=== PATIENT | female | born 1975 | race Caucasian/White ===

== ENCOUNTER → 2016-04-26 | Outpatient (REF) | payer BC ==
[2016-04-26 17:24] LABS: IMMUNOGLOBULIN G 1230 MG/DL (681-1648); IMMUNOGLOBULIN M 146 MG/DL (40-230); TOTAL PROTEIN 7.6 GM/DL (6.4-8.2)
[2016-04-28 12:00] LABS: ALBUMIN 3.88 GM/DL (3.29-5.55); ALBUMIN % 51.1 % (55.8-66.1); GAMMA GLOBULIN % 16.4 % (11.1-18.8)
== END ==
LOC: M LAB REF 16:08
PROVIDERS: ATTEND Nurse Practitioner Family
DX: R21 Rash and other nonspecific skin eruption (principal); D47.2 Monoclonal gammopathy

== ENCOUNTER → 2017-02-10 | Outpatient (REF) | payer BC | LOC: M SFHCWAGY 11:20 | DX: Z12.4 Encounter for screening for malignant neoplasm of cervix (principal) | CPT/HCPCS: G0123 ==

== ENCOUNTER → 2017-06-02 | Outpatient (REF) | payer BC ==
[2017-06-02 13:23] LABS: IMMUNOGLOBULIN G 1130 MG/DL (681-1648); IMMUNOGLOBULIN M 127 MG/DL (40-230); TOTAL PROTEIN 7.4 GM/DL (6.4-8.2)
[2017-06-07 09:45] LABS: ALPHA-1-GLOBULIN % 5.7 % (2.9-4.9)
[2017-06-07 09:46] LABS: ALBUMIN 3.77 GM/DL (3.29-5.55); ALPHA-1-GLOBULINS 0.42 GM/DL (0.17-0.41); ALPHA-2-GLOBULINS 1.04 GM/DL (0.42-0.99); ALPHA-2-GLOBULINS % 14.1 % (7.1-11.8); BETA-1-GLOBULINS 0.61 GM/DL (0.28-0.60); BETA-1-GLOBULINS % 8.3 % (4.7-7.2); BETA-2-GLOBULINS 0.38 GM/DL (0.19-0.55); BETA-2-GLOBULINS % 5.1 % (3.2-6.5); GAMMA GLOBULIN % 15.8 % (11.1-18.8); GAMMA GLOBULINS 1.17 GM/DL (0.65-1.58)
[2017-06-08 14:19] LABS: IMMUNOTYPING SERUM IGG ABNORMAL (NORMAL); IMMUNOTYPING SERUM LAMBDA ABNORMAL (NORMAL)
== END ==
LOC: M LAB REF 12:06
DX: D47.2 Monoclonal gammopathy (principal)
CPT/HCPCS: 84165

== ENCOUNTER → 2017-12-11 | Outpatient (REF) | payer BC ==
[2017-12-12 13:51] LABS: ALBUMIN % 49.5 % (55.8-66.1); ALPHA-1-GLOBULIN % 5.8 % (2.9-4.9); ALPHA-2-GLOBULINS % 13.8 % (7.1-11.8)
[2017-12-12 13:52] LABS: ALBUMIN 3.47 GM/DL (3.29-5.55); ALPHA-1-GLOBULINS 0.41 GM/DL (0.17-0.41); ALPHA-2-GLOBULINS 0.97 GM/DL (0.42-0.99); BETA-1-GLOBULINS 0.61 GM/DL (0.28-0.60); BETA-1-GLOBULINS % 8.7 % (4.7-7.2); BETA-2-GLOBULINS 0.36 GM/DL (0.19-0.55); BETA-2-GLOBULINS % 5.1 % (3.2-6.5); GAMMA GLOBULIN % 17.1 % (11.1-18.8)
[2017-12-12 13:58] LABS: IMMUNOTYPING SERUM IGG ABNORMAL (NORMAL); IMMUNOTYPING SERUM LAMBDA ABNORMAL (NORMAL)
== END ==
LOC: M LAB REF 16:38
DX: D47.2 Monoclonal gammopathy (principal)
CPT/HCPCS: 84165

== ENCOUNTER → 2018-04-20 | Outpatient (CLI) | payer BC ==
--- NOTE | 2018-04-20 17:35 | REPMRS ---
Patient History The patient states she had a clinical breast exam in 05/01 Patient is nulliparous. Family history of pancreatic cancer at age 50 or over in maternal grandmother. Taking hormonal contraceptives for 26 years. 3D TOMOSYNTHESIS WAS PERFORMED. Digital Woman Screen Mammo: April 20, 2018 - Exam #: [id number] Bilateral CC and MLO view(s) were taken. Technologist: Gloria Ruiz, Technologist Prior study comparison: February 05, 2016, digital woman screen mammo performed at [facility]. FINDINGS: There are scattered fibroglandular densities. There has been no change in the appearance of the mammogram from the prior studies. There is a mild amount of residual fibroglandular tissue which is fairly symmetric. There is no interval development of dominant mass, architectural distortion, or clustered microcalcification suggestive of malignancy. Assessment: BI-RADS/ACR category 1 mammogram. Negative Mammogram. Recommendation Routine screening mammogram in 1 year (for women over age 40). This mammogram was interpreted with the aid of an FDA-approved computer-aided dectection system. Electronically Signed By: Dylan Vega MD 04/20/18 [id number]
== END ==
LOC: M WHC 15:03
PROVIDERS: ATTEND Nurse Practitioner Family
DX: Z12.31 Encounter for screening mammogram for malignant neoplasm of breast (principal); Z78.0 Asymptomatic menopausal state; Z80.0 Family history of malignant neoplasm of digestive organs; Z92.0 Personal history of contraception

== ENCOUNTER → 2018-04-20 | Outpatient (REF) | payer BC | LOC: M SFHCWAGY 15:29 | PROVIDERS: ATTEND Nurse Practitioner Family | DX: Z12.4 Encounter for screening for malignant neoplasm of cervix (principal); N76.0 Acute vaginitis ==

== ENCOUNTER → 2019-01-14 | Outpatient (REF) | payer BC ==
[2019-01-15 17:51] LABS: TOTAL PROTEIN 7.5 GM/DL (6.4-8.2)
[2019-01-17 11:58] LABS: ALBUMIN 4.19 GM/DL (3.29-5.55); ALBUMIN % 55.9 % (55.8-66.1); ALPHA-2-GLOBULINS 0.89 GM/DL (0.42-0.99); ALPHA-2-GLOBULINS % 11.9 % (7.1-11.8); BETA-1-GLOBULINS 0.55 GM/DL (0.28-0.60); BETA-1-GLOBULINS % 7.3 % (4.7-7.2); BETA-2-GLOBULINS 0.39 GM/DL (0.19-0.55); BETA-2-GLOBULINS % 5.2 % (3.2-6.5); GAMMA GLOBULIN % 15.7 % (11.1-18.8); GAMMA GLOBULINS 1.18 GM/DL (0.65-1.58)
[2019-01-17 12:31] LABS: IMMUNOTYPING SERUM IGG ABNORMAL (NORMAL); IMMUNOTYPING SERUM LAMBDA ABNORMAL (NORMAL)
== END ==
LOC: M LAB REF 17:07
PROVIDERS: ATTEND Internal Medicine
DX: D47.2 Monoclonal gammopathy (principal)

== ENCOUNTER → 2019-08-29 | Outpatient (CLI) | payer BC ==
--- NOTE | 2019-08-29 16:35 | REPMRS ---
Patient History The patient states she had a clinical breast exam in August 2019. Family history of pancreatic cancer at age 50 or over in maternal grandmother. Taking hormonal contraceptives for 26 years. 3D TOMOSYNTHESIS WAS PERFORMED. The [facility] lifetime risk for breast cancer is 15.3%. VOLPARA DENSITY A. Digital Woman Screen Mammo: August 29, 2019 - Exam #: [id number] Bilateral CC and MLO view(s) were taken. Technologist: Nara Larose, Technologist Prior study comparison: April 20, 2018, bilateral digital woman screen mammo performed at [facility]. 2018, bilateral digital mammo screening bilat, performed at [facility]. FINDINGS: There are scattered fibroglandular densities. There has been no change in the appearance of the mammogram from the prior studies. There is a mild amount of residual fibroglandular tissue which is fairly symmetric. There is no interval development of dominant mass, architectural distortion, or clustered microcalcification suggestive of malignancy. Assessment: BI-RADS/ACR category 1 mammogram. Negative Mammogram. Recommendation Routine screening mammogram in 1 year (for women over age 40). This mammogram was interpreted with the aid of an FDA-approved computer-aided dectection system. Electronically Signed By: Dylan Vega MD 08/29/19 [id number]
== END ==
LOC: M WHC 14:47
PROVIDERS: ATTEND Nurse Practitioner Family
DX: Z12.31 Encounter for screening mammogram for malignant neoplasm of breast (principal)

== ENCOUNTER → 2019-10-18 | Outpatient (REF) | payer BC ==
[2019-10-18 13:16] LABS: IMMUNOGLOBULIN G 1140 MG/DL (681-1648); TOTAL PROTEIN 7.3 GM/DL (6.4-8.2)
[2019-10-22 12:33] LABS: ALBUMIN 4.07 GM/DL (3.29-5.55); ALBUMIN % 5.8 % (55.8-66.1); ALPHA-1-GLOBULINS 0.29 GM/DL (0.17-0.41); ALPHA-2-GLOBULINS 0.85 GM/DL (0.42-0.99); ALPHA-2-GLOBULINS % 11.7 % (7.1-11.8); BETA-1-GLOBULINS 0.54 GM/DL (0.28-0.60); BETA-1-GLOBULINS % 7.4 % (4.7-7.2); BETA-2-GLOBULINS 0.39 GM/DL (0.19-0.55); BETA-2-GLOBULINS % 5.3 % (3.2-6.5); GAMMA GLOBULIN % 15.8 % (11.1-18.8); GAMMA GLOBULINS 1.15 GM/DL (0.65-1.58)
[2019-10-22 13:01] LABS: IMMUNOTYPING SERUM IGG ABNORMAL (NORMAL); IMMUNOTYPING SERUM LAMBDA ABNORMAL (NORMAL)
== END ==
LOC: M LAB REF 11:58
PROVIDERS: ATTEND Internal Medicine
DX: D47.2 Monoclonal gammopathy (principal)

== ENCOUNTER → 2019-11-05 | Outpatient (CLI) | payer SELFPAY | LOC: M LABSMTC 12:17 | PROVIDERS: ATTEND Pediatrics | DX: Z20.828 Contact with and (suspected) exposure to other viral communicable diseases (principal) ==

== ENCOUNTER → 2019-11-21 | Outpatient (CLI) | payer SELFPAY | LOC: M LABSMTC 12:17 | PROVIDERS: ATTEND Pediatrics | DX: Z20.828 Contact with and (suspected) exposure to other viral communicable diseases (principal) ==

== ENCOUNTER → 2019-11-29 | Outpatient (CLI) | payer SELFPAY | LOC: M LABSMTC 12:17 | PROVIDERS: ATTEND Pediatrics | DX: Z20.828 Contact with and (suspected) exposure to other viral communicable diseases (principal) ==

== ENCOUNTER → 2019-12-09 | Outpatient (CLI) | payer SELFPAY | LOC: M LABSMTC 12:52 | PROVIDERS: ATTEND Pediatrics | DX: Z20.828 Contact with and (suspected) exposure to other viral communicable diseases (principal) ==

== ENCOUNTER → 2019-12-18 | Outpatient (CLI) | payer SELFPAY | LOC: M LABSMTC 12:39 | PROVIDERS: ATTEND Pediatrics | DX: Z20.828 Contact with and (suspected) exposure to other viral communicable diseases (principal) ==

== ENCOUNTER → 2020-04-17 | Outpatient (REF) | payer BC ==
[2020-04-17 13:36] LABS: IMMUNOGLOBULIN G 1190 MG/DL (681-1648); TOTAL PROTEIN 7.7 GM/DL (6.4-8.2)
[2020-04-21 13:19] LABS: ALBUMIN 4.51 GM/DL (3.29-5.55); ALBUMIN % 58.6 % (55.8-66.1); ALPHA-1-GLOBULIN % 3.7 % (2.9-4.9); ALPHA-1-GLOBULINS 0.28 GM/DL (0.17-0.41); ALPHA-2-GLOBULINS 0.87 GM/DL (0.42-0.99); ALPHA-2-GLOBULINS % 11.3 % (7.1-11.8); BETA-1-GLOBULINS 0.51 GM/DL (0.28-0.60); BETA-1-GLOBULINS % 6.6 % (4.7-7.2); BETA-2-GLOBULINS 0.35 GM/DL (0.19-0.55); BETA-2-GLOBULINS % 4.5 % (3.2-6.5); GAMMA GLOBULIN % 15.3 % (11.1-18.8); GAMMA GLOBULINS 1.18 GM/DL (0.65-1.58)
[2020-04-21 14:07] LABS: IMMUNOTYPING SERUM IGG ABNORMAL (NORMAL); IMMUNOTYPING SERUM LAMBDA ABNORMAL (NORMAL)
== END ==
LOC: M LAB REF 12:21
PROVIDERS: ATTEND Internal Medicine
DX: D47.2 Monoclonal gammopathy (principal)

== ENCOUNTER → 2020-05-07 | Outpatient (CLI) | payer SELFPAY | LOC: M LABSMTC 12:12 | PROVIDERS: ATTEND Pediatrics | DX: Z20.822 Contact with and (suspected) exposure to COVID-19 (principal) ==

== ENCOUNTER 2020-06-05 01:35 | Emergency (ER) | payer BC ==
[~2020-06-05] VITALS: Ht 152.4 cm; Wt 77.6 kg
[2020-06-05] MEDS ORDERED: AMBI12.52 PO (01:45)
[2020-06-05] MEDS ORDERED: TRAM50TA2 PO (01:45)
[2020-06-05] MEDS ORDERED: ATEN25TA PO (01:45)
[2020-06-05] MEDS ORDERED: NORE0.353 PO (01:45)
[2020-06-05] MEDS ORDERED: HYDR-3490 PO (01:45)
[2020-06-05] MEDS ORDERED: PHEN-239 PO (01:45)
[2020-06-05] MEDS ORDERED: WELLTAB40 PO (01:50)
[2020-06-05] MEDS ORDERED: xyzal (01:58)
[2020-06-05] MEDS ORDERED: dexameTHASONE 20MG/5ML VIAL (J1100 PER 1MG) IV ONE (02:05)
[2020-06-05] MEDS: COMBIVENT RESPIMAT 100-20MCG INHALER 4GM INH SCH ×3 (02:26→03:17)
[2020-06-05 02:31] LABS: VENOUS BASE EXCESS -1.9 (-2.0-2.0); VENOUS HCO3 24.8 MEQ/L (23.0-27.0); VENOUS O2 SATURATION 94.8 % (60.0-80.0); VENOUS PARTIAL PRESSURE CO2 49.6 mmHg (38.0-50.0); VENOUS PARTIAL PRESSURE O2 77.4 mmHg (30.0-50.0); VENOUS PH 7.316 UNITS (7.330-7.430); VENOUS STANDARD HCO3 22.8 MEQ/L; VENOUS TOTAL CO2 26.3 MEQ/L (24.0-28.0)
[2020-06-05 02:35] LABS: BASO # 0.1 10^3/uL (0.0-0.2); BASO % 0.8 % (0.0-1.0); EOS # 0.6 10^3/uL (0.0-0.5); EOS % 4.1 % (0.0-3.0); HEMOGLOBIN 13.4 g/dl (12.0-15.5); LYMPH # 2.5 10^3/uL (1.5-5.0); LYMPH % 16.7 % (24.0-44.0); MEAN CORPUSCULAR HEMOGLOBIN 29.8 pg (27.0-33.0); MEAN CORPUSCULAR HGB CONC 32.7 g/dl (32.0-36.5); MEAN CORPUSCULAR VOLUME 91.3 fl (80.0-96.0); MONO # 1.3 10^3/uL (0.0-0.8); MONO % 8.8 % (2.0-8.0); NEUTROPHILS # 10.2 10^3/uL (1.5-8.5); NEUTROPHILS % 69.3 % (36.0-66.0); PLATELET COUNT, AUTOMATED 358 10^3/uL (150-450); RED BLOOD COUNT 4.49 10^6/uL (4.00-5.40); WHITE BLOOD COUNT 14.7 10^3/uL (4.0-10.0)
[2020-06-05 02:46] LABS: INR 0.95; PROTHROMBIN TIME 12.9 SECONDS (12.5-14.3)
[2020-06-05 02:48] LABS: D-DIMER QUANT 1173.97 ng/ml (<500)
[2020-06-05 03:01] LABS: HCG, SERUM QUALITATIVE NEGATIVE (NEGATIVE)
[2020-06-05 03:08] LABS: ALT/SGPT 21 U/L (12-78); BILIRUBIN,DIRECT 0.2 MG/DL (0.0-0.2); BILIRUBIN,TOTAL 0.5 MG/DL (0.2-1.0); BLOOD UREA NITROGEN 20 MG/DL (7-18); C REACTIVE PROTEIN QUANTITATIV 1.48 MG/DL (0.00-0.30); CARBON DIOXIDE LEVEL 26 MEQ/L (21-32); CHLORIDE LEVEL 108 MEQ/L (98-107); CPK CREATINE PHOSPHOKINASE 82 U/L (26-192); CREATININE FOR GFR 0.88 MG/DL (0.55-1.30); FERRITIN 23 NG/ML (8-252); GLOMERULAR FILTRATION RATE > 60.0 (>58); GLUCOSE, FASTING 146 MG/DL (70-100); LDH LACTATE DEHYDROGENASE 164 U/L (84-246); MB/CK RELATIVE INDEX 2.44 (< OR =4); SODIUM LEVEL 140 MEQ/L (136-145); TOTAL PROTEIN 7.7 GM/DL (6.4-8.2); TROPONIN I < 0.02 NG/ML (< 0.10)
--- NOTE | 2020-06-05 03:31 | REPVR ---
PROCEDURE INFORMATION: Exam: XR Chest Exam date and time: 06/05/2020 2:28 AM Age: 45 years old Clinical indication: Other: Dyspnea/cough TECHNIQUE: Imaging protocol: XR of the chest. Views: 1 view. COMPARISON: No relevant prior studies available. FINDINGS: Lungs: Unremarkable. No consolidation. Pleural spaces: Unremarkable. No pleural effusion. No pneumothorax. Heart/Mediastinum: Unremarkable. No cardiomegaly. Bones/joints: Unremarkable. IMPRESSION: No acute infiltrates. Electronically signed by: Aneudy Moreno On 06/05/2020 03:31:23 AM
[2020-06-05] MEDS ORDERED: ISOVUE-370 76% 100ML VIAL As Ordered ONE (04:57)
[2020-06-05] MEDS ORDERED: DEXA4TA PO (05:02)
[2020-06-05] MEDS ORDERED: VENTAER INH (05:03)
[2020-06-05 05:29] VITALS: BP 118/73
--- NOTE | 2020-06-05 18:11 | ECGEPIP ---
[facility] - ED Test Date: 2020-06-05 Pat Name: MONICA BARRAZA Department: Room: - Gender: Female [employer]: SR : 1975 Requested By: FERDINAND Naylor Order Number: [id number] Reading MD: Ferdinand Mathias Measurements Intervals [place] Rate: 105 P: 76 SC: 178 QRS: 69 QRSD: 92 T: 63 QT: 362 QTc: 478 Interpretive Statements Sinus tachycardia Comparison tracing not on file Electronically Signed on 06-05-2020 18:10:37 EDT by Ferdinand Mathias
== END 2020-06-05 05:33 | disposition home or self-care (01) ==
LOC: M ED 01:35
DX: J45.909 Unspecified asthma, uncomplicated (principal); K21.9 Gastro-esophageal reflux disease without esophagitis; Z87.891 Personal history of nicotine dependence; Z88.8 Allergy status to other drugs, medicaments and biological substances
CPT/HCPCS: 71045; 80048; 80076; 82550; 82553; 82728; 82803; 83605; 83615; 84443; 84484; 84703; 85025; 85379; 85610; 86140; 87040; 87798; 93005; 93041; 96374; 99284; J1100; Q9967

== ENCOUNTER → 2020-09-16 | Outpatient (REF) | payer BC ==
[~2020-09-16] MED LIST: AMBI12.52 PO; ATEN25TA PO; DEXA4TA PO; HYDR-3490 PO; NORE0.353 PO; PHEN-239 PO; TRAM50TA2 PO; VENTAER INH; WELLTAB40 PO; xyzal
== END ==
LOC: M SFHCWAGY 18:01
PROVIDERS: ATTEND Advanced Practice Midwife
DX: Z12.4 Encounter for screening for malignant neoplasm of cervix (principal)
CPT/HCPCS: 87624; G0123

== ENCOUNTER → 2020-09-16 | Outpatient (CLI) | payer BC ==
--- NOTE | 2020-09-16 16:23 | REPMRS ---
Patient History The patient states she had a clinical breast exam in September 2020. Family history of pancreatic cancer at age 50 or over in maternal grandmother. Taking hormonal contraceptives for 26 years. Patient states no breast complaints today. Patient has signed MRS History Sheet. Digital Woman Screen Mammo: September 16, 2020 - Exam #: [id number] Bilateral CC and MLO view(s) were taken. Technologist: Maci Rivers, Technologist Prior study comparison: August 29, 2019, bilateral digital woman screen mammo performed at [facility]. April 20, 2018, bilateral digital woman screen mammo performed at [facility]. FINDINGS: There are scattered fibroglandular densities. Screening. Digital screening (2D) mammography was performed bilaterally in the CC and MLO projections. Additionally, breast tomosynthesis (3D mammography) was performed bilaterally in the CC and MLO projections. Todays exam was compared to the prior exam/exams. By history, the patient has no complaints of a palpable breast abnormality or other significant breast complaints. The breasts are unchanged in size and shape. There are no jose enrique-soft tissue densities or spiculated masses. There is no internal architectural distortion. There are no suspicious jose enrique-calcific clusters. Skin thickening or nipple retraction is not present. IMPRESSION: BI-RADS Category 1-negative. There is no evidence of malignant alteration of the breasts. Followup examination recommended in one year. This mammogram was read with the assistance of UpTo,an FDA approved computer aided detection system for mammography. The Volpara volumetric breast density category is B, there are scattered areas of fibroglandular densities. Negative x-ray reports should not delay surgical consultation if a dominant or clinically suspicious mass is present. The lifetime Tyrer-Cuzick score is 15.1 % Not all breast cancers can be identified by mammography. Therefore, we recommend that you continue to perform regular breast self-examination and physical examination and then promptly contact your physician of any concerns or changes. Adenosis and dense breasts may obscure an underlying neoplasm. Assessment: BI-RADS/ACR category 1 mammogram. Negative Mammogram. Recommendation Routine screening mammogram of both breasts in 1 year. Electronically Signed By: Laith Jang DO 09/16/20 [id number]
== END ==
LOC: M WHC 15:27
PROVIDERS: ATTEND Advanced Practice Midwife
DX: Z12.31 Encounter for screening mammogram for malignant neoplasm of breast (principal); Z80.0 Family history of malignant neoplasm of digestive organs; Z79.3 Long term (current) use of hormonal contraceptives

== ENCOUNTER → 2021-01-27 | Outpatient (REF) | payer BC ==
[2021-01-27 18:46] LABS: IMMUNOGLOBULIN G 1290 MG/DL (681-1648); TOTAL PROTEIN 8.2 GM/DL (6.4-8.2)
[2021-01-29 11:22] LABS: ALBUMIN 4.67 GM/DL (3.29-5.55); ALBUMIN % 56.9 % (55.8-66.1); ALPHA-1-GLOBULIN % 3.8 % (2.9-4.9); ALPHA-1-GLOBULINS 0.31 GM/DL (0.17-0.41); ALPHA-2-GLOBULINS 0.98 GM/DL (0.42-0.99); ALPHA-2-GLOBULINS % 11.9 % (7.1-11.8); BETA-1-GLOBULINS 0.55 GM/DL (0.28-0.60); BETA-1-GLOBULINS % 6.7 % (4.7-7.2); BETA-2-GLOBULINS % 4.9 % (3.2-6.5); GAMMA GLOBULIN % 15.8 % (11.1-18.8)
[2021-01-29 11:35] LABS: IMMUNOTYPING SERUM IGG ABNORMAL (NORMAL); IMMUNOTYPING SERUM LAMBDA ABNORMAL (NORMAL)
== END ==
LOC: M LAB REF 16:42
PROVIDERS: ATTEND Internal Medicine
DX: D47.2 Monoclonal gammopathy (principal)

== ENCOUNTER → 2021-02-24 | Outpatient (REF) | LOC: M LABSMTC 11:47 | PROVIDERS: ATTEND Pediatrics | DX: Z11.52 Encounter for screening for COVID-19 (principal) ==

== ENCOUNTER → 2022-02-17 | Outpatient (REF) | payer OTHER ==
[2022-02-17 13:47] LABS: IMMUNOGLOBULIN A 186.5 MG/DL (40-350); IMMUNOGLOBULIN G 1368 MG/DL (650-1600)
[2022-02-17 13:48] LABS: IMMUNOGLOBULIN M 180.1 MG/DL (50-300)
== END ==
LOC: M LAB REF 12:16
PROVIDERS: ATTEND Internal Medicine
DX: D47.2 Monoclonal gammopathy (principal)

== ENCOUNTER → 2023-02-03 | Outpatient (REF) | payer OTHER | LOC: M PLALAB 11:05 | PROVIDERS: ATTEND Advanced Practice Midwife | DX: Z12.4 Encounter for screening for malignant neoplasm of cervix (principal) | CPT/HCPCS: 87624; G0123 ==

== ENCOUNTER → 2023-02-03 | Outpatient (CLI) | payer OTHER | LOC: M WHC 10:17 | PROVIDERS: ATTEND Advanced Practice Midwife | DX: Z12.31 Encounter for screening mammogram for malignant neoplasm of breast (principal) ==

== ENCOUNTER → 2024-05-17 | Outpatient (CLI) | payer OTHER | LOC: M WHC 13:28 | PROVIDERS: ATTEND Advanced Practice Midwife | DX: Z12.31 Encounter for screening mammogram for malignant neoplasm of breast (principal) ==